=== PATIENT | male | born 1955 | race Caucasian/White ===

== ENCOUNTER 2018-02-15 07:03 | Observation (INO) | payer OTHER ==
[~2018-02-15] VITALS: Ht 175.3 cm; Wt 89.7 kg
[2018-02-15] MEDS ORDERED: ASPIRIN 81 MG TABLET CHEW ONE (07:35)
[2018-02-15] MEDS ORDERED: OMEP20TA9 PO (07:39)
[2018-02-15 07:57] LABS: BASOPHILS # (AUTO) 0.04 x10^3/uL (0-0.1); BASOPHILS % (AUTO) 1 % (0-1); EOSINOPHILS # (AUTO) 0.06 x10^3/uL (0-0.4); EOSINOPHILS % (AUTO) 1 % (1-7); LYMPHOCYTES # (AUTO) 1.47 x10^3/uL (1-3.4); LYMPHOCYTES % (AUTO) 21 % (22-44); MD NO; MEAN CORPUSCULAR HEMOGLOBIN 30.3 pg (27.5-34.5); MEAN CORPUSCULAR VOLUME 88.9 fL (81-97); MEAN PLATELET VOLUME 7.6 fL (7.4-10.4); MONOCYTES # (AUTO) 0.61 x10^3/uL (0.2-0.8); MONOCYTES % (AUTO) 9 % (2-9); NEUTROPHILS # (AUTO) 4.93 x10^3/uL (1.8-6.8); NEUTROPHILS % (AUTO) 69 % (42-75); PLATELET COUNT 206 x10^3/uL (130-400); RED BLOOD COUNT 5.02 x10^6/uL (4.38-5.82); RED CELL DISTRIBUTION WIDTH 13.7 % (9.4-14.8)
[2018-02-15] MEDS ORDERED: ASPIRIN 81 MG TABLET CHEW PO ONE (08:00)
[2018-02-15 08:09] LABS: ALBUMIN 3.7 g/dL (3.4-5.0); ANION GAP 5 mmol/L (5-15); CHLORIDE 108 mmol/L (98-107); CREATININE 1.21 mg/dL (0.7-1.3)
[2018-02-15 08:12] LABS: TROPONIN I < 0.015 ng/mL (0.000-0.045)
[2018-02-15 08:20] LABS: CALCIUM 8.4 mg/dL (8.5-10.1)
[2018-02-15 10:40] VITALS: BP 116/78
[2018-02-15] MEDS ORDERED: LIDODERM 5% PATCH TD SCH (11:30)
[2018-02-15] MEDS ORDERED: NITROGLYCERIN 0.4 MG/SPRAY SL PRN (11:30)
[2018-02-15] MEDS ORDERED: KETOROLAC 30 MG/1 ML IVPush PRN (11:30)
[2018-02-15] MEDS ORDERED: ONDANSETRON 2MG/ML, 2ML IVP PRN (11:30)
[2018-02-15] MEDS ORDERED: NITROGLYCERIN SINGLE TAB 0.4 MG SL PRN (11:30)
[2018-02-15] MEDS ORDERED: NITROGLYCERIN 0.4 MG BOTTLE (25 TABS) SL PRN (11:30)
[2018-02-15] MEDS ORDERED: ENOXAPARIN 40 MG/0.4 ML SQ SCH (11:30)
[2018-02-15] MEDS ORDERED: morphine SULFATE 10 MG/ML, 1ML IV PRN (11:30)
[2018-02-15] MEDS ORDERED: IBUPROFEN 200 MG TABLET PO PRN (11:30)
[2018-02-15] MEDS: METHOCARBAMOL 500 MG TABLET PO SCH ×3 (12:32→21:21)
[2018-02-15 13:18] VITALS: BP 111/70
[2018-02-15 14:21] LABS: TROPONIN I < 0.015 ng/mL (0.000-0.045)
[2018-02-15] MEDS ORDERED: OMEPRAZOLE 20 MG CAPSULE.DR ONE (17:37)
[2018-02-15] MEDS ORDERED: TEMAZEPAM 15 MG CAPSULE PO PRN (20:30)
[2018-02-15 20:57] VITALS: BP 124/78
[2018-02-15] MEDS ORDERED: SODIUM CHLORIDE FLUSH 10ML SYR IVF SCH (21:00)
[2018-02-15 21:17] LABS: TROPONIN I < 0.015 ng/mL (0.000-0.045)
[2018-02-16 00:35] VITALS: BP 126/76
[2018-02-16] MEDS: METHOCARBAMOL 500 MG TABLET PO SCH (05:14)
[2018-02-16 05:24] LABS: CHOL/HDL RATIO 5.2
[2018-02-16] MEDS ORDERED: ASPIRIN 325 MG TABLET EC PO SCH (06:00)
[2018-02-16 07:17] VITALS: BP 128/79
[2018-02-16] MEDS ORDERED: OMEPRAZOLE 20 MG CAPSULE.DR PO SCH (09:00)
== END 2018-02-16 09:58 | disposition home or self-care (01) ==
LOC: ED 09:43 → EDIP 09:44 → INTOOBSV 09:44 → 5SO 10:40
PROVIDERS: ADMIT Family Medicine; ATTEND Family Medicine
DX: M94.0 Chondrocostal junction syndrome [Tietze] (principal); M41.9 Scoliosis, unspecified; K22.70 Barrett's esophagus without dysplasia; Z80.0 Family history of malignant neoplasm of digestive organs
CPT/HCPCS: 36415; 71046; 80048; 80061; 82040; 83880; 84484; 85025; 93005; 97165; 99285; G0378; G8978; G8979; G8980